=== PATIENT | female | born 1970 | race Caucasian/White ===

== ENCOUNTER 2018-04-09 13:02 | Emergency (ER) | payer OTHER ==
[~2018-04-09] VITALS: Ht 162.6 cm; Wt 86.2 kg
[2018-04-09] MEDS ORDERED: ACEBUTOLOL HCL200 MG (13:27)
[2018-04-09] MEDS ORDERED: ASPIR-LOW81 MG (13:28)
[2018-04-09] MEDS ORDERED: SINGULAIR10 MG (13:28)
[2018-04-09] MEDS ORDERED: ADVAIR HFA 45/212 GM (13:28)
[2018-04-09] MEDS ORDERED: CRESTOR10 MG (13:28)
[2018-04-09] MEDS ORDERED: ZITHROMAX500 MG PO (18:00)
== END 2018-04-09 18:20 | disposition home or self-care (01) ==
LOC: ER 13:02
DX: J02.9 Acute pharyngitis, unspecified (principal); J11.1 Influenza due to unidentified influenza virus with other respiratory manifestations